=== PATIENT | female | born 1985 | race Caucasian/White ===

== ENCOUNTER 2021-02-11 09:35 | Emergency (ER) | payer MEDICAID ==
[~2021-02-11] VITALS: Ht 167.6 cm; Wt 49.1 kg
[~2021-02-11 09:35] MED LIST: BUSP5TAB3 PO; LAMO100T40 PO; TRAZ150T78 PO
[2021-02-11] MEDS ORDERED: propofol 10mg/ml 20ml vial IV ONE (09:50)
[2021-02-11] MEDS ORDERED: HYDROcodone/acetaminophen 10/325mg tab PO ONE ×2 (09:50)
[2021-02-11 11:32] VITALS: BP 99/76
== END 2021-02-11 11:42 | disposition home or self-care (01) ==
LOC: ER 09:36
DX: S43.004A Unspecified dislocation of right shoulder joint, initial encounter (principal); X50.9XXA Other and unspecified overexertion or strenuous movements or postures, initial encounter; Y93.89 Activity, other specified; Y92.89 Other specified places as the place of occurrence of the external cause; Y99.8 Other external cause status
CPT/HCPCS: 23650; 73020; 99285

== ENCOUNTER → 2021-02-16 | Day surgery (SDC) | payer MEDICAID ==
[2021-02-09 13:57] LABS: BASOPHILS # (AUTO) 0.1 X10'3 (0-0.2); BASOPHILS % (AUTO) 0.9 % (0-1); EOSINOPHILS # (AUTO) 0.4 X10'3 (0-0.9); EOSINOPHILS % (AUTO) 6.7 % (0-6); LYMPHOCYTES # (AUTO) 2.1 X10'3 (1.1-4.8); LYMPHOCYTES % (AUTO) 31.9 % (21-51); MEAN CORPUSCULAR HEMOGLOBIN 31.8 PG (27.0-31.0); MEAN CORPUSCULAR HGB CONC 33.4 g/dL (33.0-36.5); MEAN CORPUSCULAR VOLUME 95.1 FL (78-98); MEAN PLATELET VOLUME 9.2 FL (7.4-10.4); MONOCYTES # (AUTO) 0.4 X10'3 (0-0.9); MONOCYTES % (AUTO) 6.6 % (2-12); NEUTROPHILS # (AUTO) 3.5 X10'3 (1.8-7.7); NEUTROPHILS % (AUTO) 53.9 % (42-75); PRE OP HEMOGLOBIN 14.1 g/dL (12.0-16.0); PRE OP PLATELET COUNT 228 X10'3 (140-440); RED BLOOD COUNT 4.42 X10'6 (4.20-5.60); RED CELL DISTRIBUTION WIDTH 12.7 % (11.5-14.5)
[2021-02-09 13:58] LABS: CLARITY,URINE CLOUDY (Clear); COLOR,URINE STRAW (Yellow); GLUCOSE, URINE NEGATIVE (Neg); KETONES,URINE NEGATIVE (Neg); LEUKOCYTE ESTERASE ,URINE NEGATIVE (Neg); NITRITES, URINE NEGATIVE (Neg); OCCULT BLOOD,URINE NEGATIVE (Neg); PROTEIN,URINE NEGATIVE (Neg); UROBILINOGEN,URINE 0.2 E.U/dL (0.2-1.0)
[2021-02-09 13:59] LABS: UA COLLECTION TYPE CLN CATCH MIDSTREAM
[2021-02-09 14:08] LABS: MUCUS STRANDS MANY /LPF (Neg); SQUAMOUS EPITHELIAL CELL,UR MANY /LPF (FEW)
[2021-02-09 14:09] LABS: AMORPHOUS PHOSPHATES 4+
[2021-02-09 14:11] LABS: ALBUMIN/GLOBULIN RATIO 1.3 (1.1-1.5); ALKALINE PHOSPHATASE 124 IU/L (46-116); BACTERIA,URINE 1+ /HPF (Neg); BLOOD UREA NITROGEN 12 MG/DL (7-18); BUN/CREATININE RATIO 12.5 (6.6-38.0); CALCIUM 8.8 MG/DL (8.5-10.1); CHLORIDE 105 MMOL/L (99-107); CREATININE 0.96 MG/DL (0.40-0.90); PRE OP ALT 27 U/L (30-65); PRE OP ANION GAP 8 (8-16); PRE OP AST 17 U/L (10-37); PRE OP BILIRUB, TOTAL 0.3 MG/DL (0.0-1.0); PRE OP POTASSIUM 3.8 MMOL/L (3.4-5.1); PRE OP SODIUM 140 MMOL/L (135-145); RBC,URINE 0-2 /HPF (0-2); TOTAL CARBON DIOXIDE 27.2 MMOL/L (24-32); WBC,URINE 0-4 /HPF (0-4); eGFR 67 ML/MIN
[2021-02-09 14:14] LABS: PRE OP GLUCOSE 89 MG/DL (70-104)
[~2021-02-16] VITALS: Ht 167.6 cm; Wt 49.0 kg
[2021-02-16] VITALS (12 sets, daily range): BP systolic 95–107; BP diastolic 42–70
[~2021-02-16] MED LIST changes: +BUPIVAcaine 0.5% inj/PF 30 ML ONE; +BUPIVAcaine HCl 0.25%/EPInephrine 1:200,000 inj. 10 ML VIAL ONE; +LIDOcaine 2% (20mg/ml) 5ml vial ONE; +acetaminophen 1,000mg/100ml IV 100 ML IV ONE; +albuterol 2.5 MG/3 ML nebule NEB ONE; +ceFOXitin 2GM-NS 100mL ADDvant 100 ML IV ONE; +dexamethasone sod phosphate 4mg/ml inj. ONE; +famotidine 20mg tablet PO ONE; +glycopyrrolate 0.2mg/ml inj ONE; +meperidine/PF 25mg/ml syringe IV PRN; +meperidine/PF 25mg/ml syringe ONE; +midazolam 1 mg/ML 2ml injection ONE; +morphine 2 MG/ML inj. syringe IV PRN; +morphine 4 MG/ML inj SYRINge IV PRN; +neostigmine methylsulfate 1 MG/ML 10ml vial ONE; +ondansetron/PF 4mg/2ml inj IV PRN; +ondansetron/PF 4mg/2ml inj ONE; +proCHLORperazine 10 MG/2 ml inj IV PRN; +propofol inj 20 ML IV ONE; +ringers solution, lacted 1,000 ML IV SCH; +rocuronium 10mg/ml inj IV ONE; +sevoflurane 250ml liquid IH ONE; +vasoPRESSIN 20 units/ml inj. ONE
--- NOTE | 2021-02-16 14:45 | NUR ---
Received from OR via , accompanied by Anesthesiologist DR PAPPAS and report given by Anesthesiolgist. PT PRESENTS WITH 20G RIGHT WRIST, VSS. Addendum: 02/16/21 at 1452 by Beatriz Reid RN, RN Amended: Links added.
[2021-02-16] MEDS: meperidine/PF 25mg/ml syringe IV PRN ×2 (15:23→15:52)
--- NOTE | 2021-02-16 16:15 | NUR ---
. DISCHARGED HOME IN GOOD CONDITION DISCHARGE CRITERIA MET, DISCHARGE INSTRUCTIONS GIVEN TO PT, PT VERBALIZED UNDERSTANDING WITH NO FURTHER QUETIONS AT THIS TIME. Addendum: 02/16/21 at 1634 by Beatriz Reid RN, RN Amended: Links added.
== END | disposition home or self-care (01) ==
LOC: PAS 10:12
PROVIDERS: ATTEND Obstetrics & Gynecology Obstetrics
DX: N89.8 Other specified noninflammatory disorders of vagina (principal); F41.9 Anxiety disorder, unspecified; G40.409 Other generalized epilepsy and epileptic syndromes, not intractable, without status epilepticus; F17.210 Nicotine dependence, cigarettes, uncomplicated; Z90.710 Acquired absence of both cervix and uterus; Z98.890 Other specified postprocedural states; Z79.899 Other long term (current) drug therapy; Z88.8 Allergy status to other drugs, medicaments and biological substances; Z91.09 Other allergy status, other than to drugs and biological substances; Z85.41 Personal history of malignant neoplasm of cervix uteri; Z83.3 Family history of diabetes mellitus; Z80.51 Family history of malignant neoplasm of kidney; Z80.49 Family history of malignant neoplasm of other genital organs
CPT/HCPCS: 36415; 58999; 71046; 80053; 81001; 82948; 85025; 86885; 86900; 86901; J0131; J0694; J1100; J2001; J2175; J2250; J2405; J2704; J2710; J3490; J7120; A4618; A7000

== ENCOUNTER 2021-05-24 08:11 | Emergency (ER) | payer MEDICAID ==
[~2021-05-24] VITALS: Ht 167.6 cm; Wt 51.8 kg
[~2021-05-24 08:11] MED LIST changes: -BUPIVAcaine 0.5% inj/PF 30 ML ONE; -BUPIVAcaine HCl 0.25%/EPInephrine 1:200,000 inj. 10 ML VIAL ONE; -LIDOcaine 2% (20mg/ml) 5ml vial ONE; -acetaminophen 1,000mg/100ml IV 100 ML IV ONE; -albuterol 2.5 MG/3 ML nebule NEB ONE; -ceFOXitin 2GM-NS 100mL ADDvant 100 ML IV ONE; -dexamethasone sod phosphate 4mg/ml inj. ONE; -famotidine 20mg tablet PO ONE; -glycopyrrolate 0.2mg/ml inj ONE; -meperidine/PF 25mg/ml syringe IV PRN; -meperidine/PF 25mg/ml syringe ONE; -midazolam 1 mg/ML 2ml injection ONE; -morphine 2 MG/ML inj. syringe IV PRN; -morphine 4 MG/ML inj SYRINge IV PRN; -neostigmine methylsulfate 1 MG/ML 10ml vial ONE; -ondansetron/PF 4mg/2ml inj IV PRN; -ondansetron/PF 4mg/2ml inj ONE; -proCHLORperazine 10 MG/2 ml inj IV PRN; -propofol inj 20 ML IV ONE; -ringers solution, lacted 1,000 ML IV SCH; -rocuronium 10mg/ml inj IV ONE; -sevoflurane 250ml liquid IH ONE; -vasoPRESSIN 20 units/ml inj. ONE
[2021-05-24] MEDS ORDERED: LIDOcaine 1% 30ml preserv. free vial IJ ONE (08:15)
[2021-05-24] MEDS ORDERED: propofol 10mg/ml 20ml vial IV ONE (08:25)
[2021-05-24 09:17] VITALS: BP 105/66
== END 2021-05-24 09:34 | disposition home or self-care (01) ==
LOC: ER 08:12
DX: S43.004D Unspecified dislocation of right shoulder joint, subsequent encounter (principal); Z88.8 Allergy status to other drugs, medicaments and biological substances; Z79.899 Other long term (current) drug therapy; X58.XXXD Exposure to other specified factors, subsequent encounter
CPT/HCPCS: 23650; 73030; 94760; 94799; 99152; 99285